=== PATIENT | male | born 1950 | race Caucasian/White ===

== ENCOUNTER 2018-03-19 03:33 | Inpatient (IN) | payer OTHER, MEDICARE ==
[~2018-03-19] VITALS: Ht 177.8 cm; Wt 95.7 kg
[2018-03-19 03:39] VITALS: Ht 177.8 cm; Wt 95.7 kg
[2018-03-19 04:35] LABS: BASOPHIL % 0.4 % (0-2); PLATELET COUNT 187 x10^3mcL (130-400); RED CELL DISTRIBUTION WIDTH 14.2 % (11.5-14.5)
[2018-03-19 04:39] LABS: CALCIUM 9.1 mg/dL (8.5-10.1); CARBON DIOXIDE 24.1 mmol/L (21-32); CHLORIDE SERUM 106 mmol/L (98-107); CREATININE SERUM 1.1 mg/dL (0.7-1.3); GFR1 > 60 mL/min; GLUCOSE SERUM 134 mg/dL (74-106); POTASSIUM SERUM 3.6 mmol/L (3.5-5.1); SODIUM SERUM 141 mmol/L (136-145)
[2018-03-19 04:44] LABS: ALBUMIN 3.6 g/dL (3.4-5.0); ALKALINE PHOSPHATASE 69 U/L (46-116); ALT/SGPT 35 U/L (16-63); AST/SGOT 19 U/L (15-37); BILIRUBIN TOTAL 0.4 mg/dL (0.20-1.00); TOTAL PROTEIN, SERUM 6.7 g/dL (6.4-8.2)
[2018-03-19 04:45] LABS: LIPASE 14353 IU/L (73-393)
[2018-03-19] MEDS ORDERED: LISINOPRIL10 MG (05:36)
[2018-03-19] MEDS ORDERED: LIPITOR40 MG (05:36)
[2018-03-19] MEDS ORDERED: GOOD SENSE ASPI81 M3 (05:37)
[2018-03-19] MEDS ORDERED: PROTONIX20 MG PO (05:37)
[2018-03-19 05:55] LABS: CHOLESTEROL/HDL RATIO 3.5; MAGNESIUM 1.8 mg/dL (1.8-2.4); PHOSPHOROUS 3.6 mg/dL (2.5-4.9)
[2018-03-19 06:01] LABS: T3 TOTAL 1.04 ng/mL
[2018-03-19 06:12] LABS: FREE T4 0.81 ng/dL (0.76-1.46); FREE THYROXINE INDEX 2.7 ug/dL (1.4-4.5); T4(THYROXINE) 7.7 ug/dL (4.7-13.3)
[2018-03-19 06:49] VITALS: BP 188/95
[2018-03-19 09:16] LABS: UA SPECIFIC GRAVITY <=1.005 (1.005-1.035); microscopic required? YES; urine erythrocyte TRACE (NEGATIVE)
[2018-03-19 09:41] LABS: AMPHETAMINE QUAL UR NONE DETECTED (See below)
[2018-03-19 17:46] VITALS: BP 197/99
[2018-03-19 20:44] VITALS: BP 171/94
[2018-03-19 21:36] VITALS: BP 156/90
[2018-03-20 05:12] VITALS: BP 147/72
[2018-03-20 06:12] LABS: PLATELET COUNT 195 x10^3mcL (130-400)
[2018-03-20 06:39] LABS: RED CELL DISTRIBUTION WIDTH 14.6 % (11.5-14.5)
[2018-03-20 06:41] LABS: CALCIUM 7.8 mg/dL (8.5-10.1); CARBON DIOXIDE 26.9 mmol/L (21-32); CHLORIDE SERUM 110 mmol/L (98-107); GFR1 > 60 mL/min; GLUCOSE SERUM 122 mg/dL (74-106); MAGNESIUM 1.7 mg/dL (1.8-2.4); SODIUM SERUM 146 mmol/L (136-145)
[2018-03-20 08:24] LABS: LIPASE 6244 IU/L (73-393)
[2018-03-20 09:00] VITALS: BP 141/87
[2018-03-20 09:59] LABS: BAND NEUTROPHIL 1 % (0-10); MONOCYTE 7 % (0-7); SEGMENTED NEUTROPHILS 90 % (37-75); rbc morphology (normal/abnorm) ABNORMAL (NORMAL)
[2018-03-20 10:00] LABS: PLATELET MORPHOLOGY PLATELETS NORMAL
[2018-03-20 13:03] LABS: BILIRUBIN DIRECT 0.15 mg/dL (0.0-0.2); BILIRUBIN TOTAL 0.61 mg/dL (0.20-1.00)
[2018-03-20 13:05] LABS: ALBUMIN 2.3 g/dL (3.4-5.0); TOTAL PROTEIN, SERUM 4.5 g/dL (6.4-8.2)
[2018-03-20 17:02] VITALS: BP 118/78
[2018-03-20 21:09] VITALS: BP 117/83
[2018-03-21 04:36] VITALS: BP 126/79
[2018-03-21 07:44] LABS: ALKALINE PHOSPHATASE 57 U/L (46-116); ALT/SGPT 43 U/L (16-63); AST/SGOT 136 U/L (15-37); BILIRUBIN TOTAL 1.68 mg/dL (0.20-1.00); CALCIUM 7.5 mg/dL (8.5-10.1); CARBON DIOXIDE 27.8 mmol/L (21-32); CHLORIDE SERUM 108 mmol/L (98-107); GFR1 > 60 mL/min; GLUCOSE SERUM 112 mg/dL (74-106); MAGNESIUM 1.8 mg/dL (1.8-2.4); PHOSPHOROUS 1.2 mg/dL (2.5-4.9); POTASSIUM SERUM 3.4 mmol/L (3.5-5.1); SODIUM SERUM 144 mmol/L (136-145); TOTAL PROTEIN, SERUM 6.2 g/dL (6.4-8.2)
[2018-03-21 09:15] VITALS: BP 128/75
[2018-03-21 09:24] LABS: C REACTIVE PROTEIN 16.3 mg/dL (<=0.9)
[2018-03-21 11:01] LABS: PLATELET COUNT 148 x10^3mcL (130-400)
[2018-03-21 12:26] LABS: BAND NEUTROPHIL 5 % (0-10); MONOCYTE 7 % (0-7); SEGMENTED NEUTROPHILS 84 % (37-75)
[2018-03-21 12:27] LABS: PLATELET MORPHOLOGY PLATELETS NORMAL; rbc morphology (normal/abnorm) ABNORMAL (NORMAL)
[2018-03-21 17:00] VITALS: BP 125/72
[2018-03-21 20:56] VITALS: BP 112/70
[2018-03-22 06:28] VITALS: BP 128/78
[2018-03-22 09:06] LABS: CALCIUM 7.9 mg/dL (8.5-10.1); CARBON DIOXIDE 26.9 mmol/L (21-32); CHLORIDE SERUM 104 mmol/L (98-107); CREATININE SERUM 0.8 mg/dL (0.7-1.3); GFR1 > 60 mL/min; GLUCOSE SERUM 104 mg/dL (74-106); LIPASE 265 IU/L (73-393); POTASSIUM SERUM 3.7 mmol/L (3.5-5.1); SODIUM SERUM 136 mmol/L (136-145)
[2018-03-22 09:20] LABS: PLATELET COUNT 160 x10^3mcL (130-400); RED CELL DISTRIBUTION WIDTH 13.8 % (11.5-14.5)
[2018-03-22 10:02] VITALS: BP 110/62
[2018-03-22 10:34] LABS: ALBUMIN 2.6 g/dL (3.4-5.0); BILIRUBIN DIRECT 0.18 mg/dL (0.0-0.2); BILIRUBIN TOTAL 1.3 mg/dL (0.20-1.00); TOTAL PROTEIN, SERUM 6.3 g/dL (6.4-8.2)
[2018-03-22 13:50] LABS: BAND NEUTROPHIL 2 % (0-10); MONOCYTE 6 % (0-7); SEGMENTED NEUTROPHILS 88 % (37-75)
[2018-03-22 13:51] LABS: PLATELET MORPHOLOGY PLATELETS NORMAL; rbc morphology (normal/abnorm) ABNORMAL (NORMAL)
[2018-03-22 17:04] VITALS: BP 107/53
[2018-03-22 21:07] VITALS: BP 106/59
[2018-03-23 05:11] VITALS: BP 120/72
[2018-03-23 07:29] LABS: ALKALINE PHOSPHATASE 57 U/L (46-116); ALT/SGPT 43 U/L (16-63); AST/SGOT 55 U/L (15-37); BILIRUBIN TOTAL 1.37 mg/dL (0.20-1.00); CALCIUM 7.5 mg/dL (8.5-10.1); CARBON DIOXIDE 28.1 mmol/L (21-32); CHLORIDE SERUM 100 mmol/L (98-107); CREATININE SERUM 0.9 mg/dL (0.7-1.3); GFR1 > 60 mL/min; GLUCOSE SERUM 70 mg/dL (74-106); MAGNESIUM 2.5 mg/dL (1.8-2.4); PHOSPHOROUS 1.8 mg/dL (2.5-4.9); POTASSIUM SERUM 3.5 mmol/L (3.5-5.1); SODIUM SERUM 134 mmol/L (136-145)
[2018-03-23 07:30] LABS: ALBUMIN 2.6 g/dL (3.4-5.0); TOTAL PROTEIN, SERUM 5.5 g/dL (6.4-8.2)
[2018-03-23 08:45] VITALS: BP 120/69
[2018-03-23 10:07] LABS: PLATELET COUNT 184 x10^3mcL (130-400); RED CELL DISTRIBUTION WIDTH 13.6 % (11.5-14.5)
[2018-03-23 12:25] LABS: BAND NEUTROPHIL 16 % (0-10); BASOPHIL 0 % (0-2); MONOCYTE 5 % (0-7); SEGMENTED NEUTROPHILS 76 % (37-75)
[2018-03-23 12:27] LABS: PLATELET MORPHOLOGY LARGE PLATELET SEEN; rbc morphology (normal/abnorm) ABNORMAL (NORMAL); tear drop cell (dacryocyte) 1+
[2018-03-23 17:51] VITALS: BP 120/74
[2018-03-23 20:58] VITALS: BP 136/78
[2018-03-24] VITALS (7 sets, daily range): BP systolic 100–157; BP diastolic 67–83
[2018-03-24 06:12] LABS: ALKALINE PHOSPHATASE 65 U/L (46-116); ALT/SGPT 46 U/L (16-63); AST/SGOT 46 U/L (15-37); BILIRUBIN TOTAL 1.14 mg/dL (0.20-1.00); CALCIUM 7.6 mg/dL (8.5-10.1); CARBON DIOXIDE 31.3 mmol/L (21-32); CHLORIDE SERUM 99 mmol/L (98-107); GFR1 > 60 mL/min; GLUCOSE SERUM 99 mg/dL (74-106); MAGNESIUM 2.4 mg/dL (1.8-2.4); PHOSPHOROUS 1.8 mg/dL (2.5-4.9); POTASSIUM SERUM 3.4 mmol/L (3.5-5.1); SODIUM SERUM 137 mmol/L (136-145)
[2018-03-24 06:13] LABS: ALBUMIN 2.1 g/dL (3.4-5.0); TOTAL PROTEIN, SERUM 5.8 g/dL (6.4-8.2)
[2018-03-24 06:33] LABS: PLATELET COUNT 220 x10^3mcL (130-400); RED CELL DISTRIBUTION WIDTH 14.5 % (11.5-14.5)
[2018-03-24 13:15] LABS: BAND NEUTROPHIL 14 % (0-10); MONOCYTE 5 % (0-7); SEGMENTED NEUTROPHILS 74 % (37-75)
[2018-03-24 13:16] LABS: ATYPICAL LYMPH 2 %; rbc morphology (normal/abnorm) ABNORMAL (NORMAL)
[2018-03-24 13:17] LABS: PLATELET MORPHOLOGY PLATELETS NORMAL
[2018-03-25 05:20] VITALS: BP 124/80
[2018-03-25 06:29] LABS: PLATELET COUNT 254 x10^3mcL (130-400)
[2018-03-25 06:51] LABS: CALCIUM 7.8 mg/dL (8.5-10.1); CARBON DIOXIDE 34.6 mmol/L (21-32); CHLORIDE SERUM 98 mmol/L (98-107); CREATININE SERUM 0.9 mg/dL (0.7-1.3); GFR1 > 60 mL/min; GLUCOSE SERUM 116 mg/dL (74-106); MAGNESIUM 2.4 mg/dL (1.8-2.4); SODIUM SERUM 138 mmol/L (136-145)
[2018-03-25 07:01] LABS: POTASSIUM SERUM 2.8 mmol/L (3.5-5.1)
[2018-03-25 07:33] VITALS: BP 115/73
[2018-03-25 08:22] LABS: RED CELL DISTRIBUTION WIDTH 14.6 % (11.5-14.5)
[2018-03-25 13:23] LABS: MONOCYTE 4 % (0-7); SEGMENTED NEUTROPHILS 93 % (37-75)
[2018-03-25 13:24] LABS: BAND NEUTROPHIL 1 % (0-10); BASOPHIL 0 % (0-2); PLATELET MORPHOLOGY PLATELETS NORMAL; rbc morphology (normal/abnorm) ABNORMAL (NORMAL)
[2018-03-25 17:25] VITALS: BP 110/58
[2018-03-25 21:11] VITALS: BP 102/63
[2018-03-26 01:41] VITALS: BP 110/66
[2018-03-26 05:20] VITALS: BP 108/70
[2018-03-26 06:08] LABS: PLATELET COUNT 250 x10^3mcL (130-400)
[2018-03-26 06:12] LABS: CARBON DIOXIDE 34.1 mmol/L (21-32); CHLORIDE SERUM 101 mmol/L (98-107); CREATININE SERUM 0.9 mg/dL (0.7-1.3); GFR1 > 60 mL/min; GLUCOSE SERUM 104 mg/dL (74-106); MAGNESIUM 2.2 mg/dL (1.8-2.4); SODIUM SERUM 142 mmol/L (136-145)
[2018-03-26 06:14] LABS: POTASSIUM SERUM 2.7 mmol/L (3.5-5.1)
[2018-03-26 06:24] LABS: RED CELL DISTRIBUTION WIDTH 14.7 % (11.5-14.5)
[2018-03-26 09:52] VITALS: BP 122/60
[2018-03-26 09:57] LABS: BAND NEUTROPHIL 2 % (0-10); MONOCYTE 4 % (0-7); SEGMENTED NEUTROPHILS 83 % (37-75)
[2018-03-26 09:58] LABS: rbc morphology (normal/abnorm) ABNORMAL (NORMAL)
[2018-03-26 12:32] VITALS: BP 122/60
== END 2018-03-26 13:44 | disposition home or self-care (01) | DRG 871 ==
LOC: ED 03:33 → MU 05:34
PROVIDERS: Emergency Medicine; Internal Medicine; Internal Medicine Gastroenterology; Surgery; ADMIT Family Medicine
DX: A41.9 Sepsis, unspecified organism (principal); K85.90 Acute pancreatitis without necrosis or infection, unspecified; J18.9 Pneumonia, unspecified organism; J96.01 Acute respiratory failure with hypoxia; K56.7 Ileus, unspecified; K21.9 Gastro-esophageal reflux disease without esophagitis; K59.00 Constipation, unspecified; J44.9 Chronic obstructive pulmonary disease, unspecified; N20.0 Calculus of kidney; I10 Essential (primary) hypertension; Z79.82 Long term (current) use of aspirin; Z68.29 Body mass index [BMI] 29.0-29.9, adult; Z87.891 Personal history of nicotine dependence
CPT/HCPCS: 36600; 74181; 82962; 83880; 84439; 85378; 87046; 87046-59; 94150; 97116-GP; G0480; J0696; J1170; J1644; J1885; J1940; J1956; J2270; J2405; J2543; J3480; J3490; J7030; J7040; J7050; J7120; J7121; J7620; Q0092; Q9967